=== PATIENT | male | born 1995 | race Caucasian/White ===

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

== ENCOUNTER 2020-01-07 00:23 | Emergency (ER) | payer MEDICAID ==
[~2020-01-07] VITALS: Ht 172.7 cm; Wt 87.1 kg
[~2020-01-07 00:23] MED LIST changes: +ARIP20TA5 PO; -ARIP20TA8 PO; +ARIP5TAB13 PO
[2020-01-07 00:24] VITALS: BP 125/87
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
[2020-01-07] MEDS ORDERED: METHOCARBAMOL 750 MG TABLET PO ONE (00:30)
--- NOTE | 2020-01-07 00:41 | NUR ---
PT PROVIDED WARM BLANKET FOR COMFORT, NAD, NO CHANGE IN CONDITION, MEDICATED EN ROUTE WITH 600 MG IBUPROFEN. PT TO RAD VIA [facility]. [place].
[2020-01-07] MEDS ORDERED: METHOCARBAMOL 750 MG TABLET ONE (01:18)
--- NOTE | 2020-01-07 01:19 | NUR ---
late entry d/t pt care: pt medicated per jun, NAD, no changes in condition at this time, WCTM. waiting for CT read
--- NOTE | 2020-01-07 02:14 | NUR ---
PATIENT GIVEN CERVICAL COLLAR. PATIENT VERBALIZED UNDERSTANDING OF C-COLLAR AND PLACEMENT. PATIENT STATED THAT HE WOULD WEAR IT IF HE COULD TOLERATE IT.
== END 2020-01-07 02:16 | disposition home or self-care (01) ==
LOC: ED 02:15
DX: S16.1XXA Strain of muscle, fascia and tendon at neck level, initial encounter (principal); Z87.891 Personal history of nicotine dependence; X58.XXXA Exposure to other specified factors, initial encounter; Y93.89 Activity, other specified; Y92.89 Other specified places as the place of occurrence of the external cause; Y99.8 Other external cause status
CPT/HCPCS: 72125; 99284

== ENCOUNTER 2020-03-10 18:09 | Emergency (ER) | payer MEDICAID ==
[~2020-03-10] VITALS: Ht 175.3 cm; Wt 86.0 kg
[2020-03-10] MEDS ORDERED: LIDOCAINE 1%-EPI 1:100K, 20ML INFIL ONE (18:30)
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
[2020-03-10] MEDS ORDERED: LIDOCAINE 1%-EPI 1:100K, 20ML ONE (18:51)
--- NOTE | 2020-03-10 18:52 | NUR ---
lidocaine with epi at bedside. pt in xray
--- NOTE | 2020-03-10 18:57 | NUR ---
REPORT FROM ARELY Falk RN ASSUMING CARE OF PT AT THIS TIME
[2020-03-10 19:11] LABS: BASOPHILS % (AUTO) 0 % (0-1); EOSINOPHILS % (AUTO) 1 % (1-7); LYMPHOCYTES % (AUTO) 21 % (22-44); MEAN CORPUSCULAR HEMOGLOBIN 31.3 pg (27.5-34.5); MEAN CORPUSCULAR HGB CONC 35.4 g/dL (33.2-36.2); MONOCYTES % (AUTO) 11 % (2-9); NEUTROPHILS % (AUTO) 68 % (42-75); PLATELET COUNT 224 x10^3/uL (130-400); RED BLOOD COUNT 5.41 x10^6/uL (4.38-5.82); RED CELL DISTRIBUTION WIDTH 12.8 % (9.4-14.8)
[2020-03-10 19:12] LABS: MD NO
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
[2020-03-10 19:23] LABS: ALANINE AMINOTRANSFERASE 19 U/L (12-78); ALBUMIN 4.3 g/dL (3.4-5.0); ANION GAP 6 mmol/L (5-15); CHLORIDE 107 mmol/L (98-107); CREATININE 1.01 mg/dL (0.7-1.3)
[2020-03-10 19:25] LABS: SALICYLATE LEVEL < 1.7 mg/dL (2.8-20.0)
[2020-03-10 19:26] LABS: ALKALINE PHOSPHATASE 100 U/L (45-117); BILIRUBIN,TOTAL 0.5 mg/dL (0.2-1.0); TOTAL PROTEIN 7.9 g/dL (6.4-8.2)
--- NOTE | 2020-03-10 19:43 | NUR ---
tech at bedside for irrigation
--- NOTE | 2020-03-10 20:08 | NUR ---
DR ROSEN AT BEDSIDE TO DISCUSS POC AND REDISCUSS SI. PT CONTINUES TO DENY ALL THOUGHTS OF WANTING TO HARM HIMSELF.
--- NOTE | 2020-03-10 20:10 | NUR ---
PA AT BEDSIDE FOR [facility] AT THIS TIME PT TOLERATED WELL
[2020-03-10 20:39] VITALS: BP 122/81
--- NOTE | 2020-03-10 20:40 | NUR ---
Patient/Caregiver given discharge instructions and they have confirmed that they understand the instructions. Patient ambulatory with steady gait.
== END 2020-03-10 20:41 | disposition home or self-care (01) ==
LOC: ED 20:30
DX: S01.01XA Laceration without foreign body of scalp, initial encounter (principal); X78.0XXA Intentional self-harm by sharp glass, initial encounter; Y93.89 Activity, other specified; Y92.89 Other specified places as the place of occurrence of the external cause; Y99.8 Other external cause status
CPT/HCPCS: 12001; 36415; 70260; 80053; 80299; 80320; 80329; 85025; 99283; 99284; G0480